=== PATIENT | male | born 1995 | race Caucasian/White ===

== ENCOUNTER 2017-02-28 12:15 | Emergency (ER) | payer MEDICAID ==
[~2017-02-28] VITALS: Ht 170.2 cm; Wt 68.0 kg
[2017-02-28 12:42] VITALS: BP 141/89
--- NOTE | 2017-02-28 14:21 | NUR ---
PT AMBULATED TO ER BED #11.
--- NOTE | 2017-02-28 14:25 | NUR ---
Patient being evaluated by physician at bedside.
--- NOTE | 2017-02-28 14:30 | NUR ---
21/M PRESENT TO ER C/O HEADACHE x TODAY @ 1200. PT STATES HE FALL OFF HIS SCOOTER ON THE PAVEMENT HITING HIS HEAD. PT DENIES KO OR LOC. PAIN 7/10 ACHING NON-RADIATING. PT HAS MULTIPLE ABRASIONS ON FOREHEAD AND FOREARM. AAOx4, PERRLA, BREATHING EVEN AND UNLABORED, SPEAKING FULL SENTENCE. ERMD NOTIFIED OF PATIENT STATUS.
[2017-02-28 14:39] VITALS: BP 132/76
[2017-02-28] MEDS ORDERED: NEOMYCIN/POLYMYXIN/BACITRACIN 0.9 GM/1 PKT TP ONE (14:40)
[2017-02-28] MEDS ORDERED: IBUPROFEN 400 MG TAB PO ONE (14:45)
--- NOTE | 2017-02-28 14:58 | NUR ---
Patient discharged with v/s stable. Written and verbal after care instructions given and explained. Patient verbalized understanding. Ambulatory with steady gait. All questions addressed prior to discharge. Advised to follow up with PMD.
== END 2017-02-28 14:58 | disposition home or self-care (01) ==
LOC: MED 12:15
DX: S40.211A Abrasion of right shoulder, initial encounter (principal); S00.211A Abrasion of right eyelid and periocular area, initial encounter; S00.81XA Abrasion of other part of head, initial encounter; R03.0 Elevated blood-pressure reading, without diagnosis of hypertension; W05.1XXA Fall from non-moving nonmotorized scooter, initial encounter; Y93.89 Activity, other specified; Y92.89 Other specified places as the place of occurrence of the external cause; Y99.8 Other external cause status
CPT/HCPCS: 99283